=== PATIENT | female | born 1945 | race Caucasian/White ===

== ENCOUNTER 2016-11-01 18:58 | Inpatient (IN) | payer OTHER ==
[~2016-11-01] VITALS: Ht 157.5 cm; Wt 49.9 kg
--- NOTE | ~2016-11-01 | EKG ---
[address] [address] ELECTROCARDIOGRAM REPORT Name: ODILIA ORTEGA Room #: 204-P ADM IN M.R.#: [id number] Admission: 11/01/16 Attend Phys: Keven Madsen MD Discharge: Date of : 41 Report #: [id number] THIS REPORT FOR: //name// [facility] ED Test Date: 2016-11-01 Test Time: 19:24:25 Pat Name: ODILIA ORTEGA Department: Room: 204 Gender: F [employer]: JENNIE : 1945 Requested By: Donna Lewis Order Number: [id number] MD: Shane Reeder Measurements Intervals Leroy Rate: 104 P: 46 SC: 129 QRS: -27 QRSD: 91 T: 26 QT: 327 QTc: 430 Interpretive Statements Sinus tachycardia Probable left atrial enlargement Inferior infarct, old Compared to ECG 09/15/2016 16:03:47 No significant changes Electronically Signed On 11-01-2016 22:33:43 CDT by Shane Reeder [email or web address] <ELECTRONICALLY SIGNED> By: Shane Reeder MD 11/01/16 2233 23 23 Shane Reeder MD /[facility]
[~2016-11-01 18:58] MED LIST: ACCUNEB SO1.25 MG/1 INH; ADVAIR 250-501 EACH INH; BACTRIM DS TAB1 EACH PO; LEVAQUIN 500 M500 M1 PO; MEROPENEM500 MG IV; MULTIVITAMINS PO; PREDNISOLONE 5 M5 M1; PREDNISONE 10 M10 M1 PO; SIMVASTATIN20 MG PO; SIMVASTATIN40 MG PO; SPIRIVA INH; TYLENOL EX-STR500 M2 PO; XANAX 0.5 MG0.5 MG PO
[2016-11-01 19:00] VITALS: BP 103/59
[2016-11-01 19:47] LABS: ABSOLUTE NEUTROPHILS 9.7 thou/uL (1.4-8.2); BASOPHILS 0.5 % (0.0-2.0); EOSINOPHILS 0.2 % (0.0-3.0); HEMATOCRIT 32.8 % (37.0-47.0); HEMOGLOBIN 10.5 gm/dL (12.0-15.0); LYMPHOCYTES 9.9 % (24.0-44.0); MCH 26.7 pg (26.0-34.0); MCV 83.5 fL (80.0-100.0); MONOCYTES 6.9 % (1.0-8.0); PLATELET COUNT 235 thou/uL (150-400); POLYS 82.5 % (36.0-66.0); RBC 3.93 mil/uL (4.20-5.00); RDW 20.1 % (10.5-14.5); WBC 11.8 thou/uL (4.0-11.0)
[2016-11-01 19:50] LABS: MANUAL DIFF NO
[2016-11-01 19:57] LABS: ANION GAP 6 mmol/L (7-16); BUN 21 mg/dL (7-18); CALCIUM 8.9 mg/dL (8.5-10.1); CHLORIDE 98 mmol/L (98-107); CO2 25 mmol/L (21-32); CREATININE 1.1 mg/dL (0.6-1.0); GLUCOSE 161 mg/dL (74-106); POTASSIUM 4.2 mmol/L (3.5-5.1); SODIUM 129 mmol/L (136-145)
[2016-11-01 20:08] LABS: ALKALINE PHOSPHATASE 106 U/L (46-116); NT-PRO BRAIN NAT PEPTIDE 1480 pg/mL (<300); SGOT 17 U/L (15-37); SGPT 23 U/L (30-65); TOTAL BILIRUBIN 0.1 mg/dL (<0.1-1.0); TOTAL PROTEIN 6.4 g/dL (6.4-8.2); TROPONIN-I < 0.04 ng/mL (<0.04-0.07)
[2016-11-01 21:05] LABS: URINE BLOOD 3+ (Negative); URINE COLOR BROWN; URINE GLUCOSE-RANDOM* NEGATIVE (Negative); URINE KETONES NEGATIVE (Negative); URINE NITRITE NEGATIVE (Negative); URINE PROTEIN (DIPSTICK) 2+ (Negative); URINE UROBILINOGEN 0.2 E.U./dl (0.2-1.0)
[2016-11-01 21:09] LABS: ICTOTEST (BILI CONFIRMATORY) Negative (Negative); URINE BILIRUBIN NEGATIVE (Negative)
[2016-11-01 21:14] LABS: CASTS None Seen /LPF (None Seen); SQUAMOUS 4-10 Moderate /LPF (0-3); URINE WBC >25 Many /HPF (0-5)
[2016-11-01 21:15] LABS: CRYSTALS None Seen /LPF (None Seen); URINE RBC >20 Many /HPF (0-2); YEAST Present (None Seen)
[2016-11-01 21:24] VITALS: BP 119/68
[2016-11-01 22:15] VITALS: BP 106/68
[2016-11-01] MEDS ORDERED: TYLENOL325 MG PO (23:35)
[2016-11-01] MEDS ORDERED: ACIDOPHILUS LA1 EAC1 PO (23:40)
[2016-11-01] MEDS ORDERED: DILT-XR120 MG PO (23:43)
[2016-11-01] MEDS ORDERED: MIRALAX17 GM PO (23:44)
[2016-11-01] MEDS ORDERED: VITAMIN D2000 UNIT PO (23:45)
[2016-11-01] MEDS ORDERED: SENNA8.6 MG PO (23:49)
[2016-11-01] MEDS ORDERED: LEVALBUTER1.25 MG/0. (23:50)
[2016-11-02] MEDS ORDERED: ADVAIR HFA 230M12 GM INH (00:38)
[2016-11-02] MEDS ORDERED: ZOCOR20 MG PO (00:42)
[2016-11-02 03:20] VITALS: BP 118/69
[2016-11-02 08:25] VITALS: BP 100/53
[2016-11-02 13:15] VITALS: BP 100/55
[2016-11-02 16:05] VITALS: BP 104/57
[2016-11-02 18:37] VITALS: BP 89/49
[2016-11-02 19:30] VITALS: BP 98/54
[2016-11-03 03:29] VITALS: BP 102/61
[2016-11-03 07:50] VITALS: BP 97/60
[2016-11-03 12:30] VITALS: BP 100/61
[2016-11-03 15:50] VITALS: BP 102/57
[2016-11-03 19:15] VITALS: BP 115/65
[2016-11-04 03:54] VITALS: BP 114/74
[2016-11-04 07:12] VITALS: BP 119/71
[2016-11-04] MEDS ORDERED: KEFLEX500 MG PO (10:06)
== END 2016-11-04 13:15 | DRG 871 ==
LOC: ER 18:58 → 2N 20:46 → EROBS 20:46 → 2N 21:28
PROVIDERS: Physician Assistant
DX: A41.9 Sepsis, unspecified organism (principal); E43 Unspecified severe protein-calorie malnutrition; N39.0 Urinary tract infection, site not specified; J90 Pleural effusion, not elsewhere classified; J96.11 Chronic respiratory failure with hypoxia; J96.12 Chronic respiratory failure with hypercapnia; J44.9 Chronic obstructive pulmonary disease, unspecified; E78.5 Hyperlipidemia, unspecified; I27.2 Other secondary pulmonary hypertension; I11.0 Hypertensive heart disease with heart failure; I50.9 Heart failure, unspecified; Z68.20 Body mass index [BMI] 20.0-20.9, adult; Z90.49 Acquired absence of other specified parts of digestive tract; Z87.891 Personal history of nicotine dependence; Z87.01 Personal history of pneumonia (recurrent); Z79.899 Other long term (current) drug therapy
CPT/HCPCS: 10081